=== PATIENT | female | born 1945 | race Caucasian/White ===

== ENCOUNTER → 2017-06-07 | Outpatient (CLI) | payer BC ==
[~2017-06-07] MED LIST: ASPIRIN PO; BENICAR HCT 40-1 TA1 PO; KEFLEX PO; LIPITOR PO; NORCO 5/325 TAB1 TAB PO; TOPROL XL PO
--- NOTE | ~2017-06-07 | MR164 ---
[facility]. [facility] A Service of [facility] RADIOLOGY TEXT RESULTS PATIENT: FERDINAND PURI LOCATION: [facility] : 41 UNIT #: [id number] AGE: [address]: Jose Allison MD SEX: F ORDER DR: [id number] [address] [address] [id number] O MR#: [id number] Acc #: [id number] NAME: FERDINAND PURI : 1945 SEX: F STUDY DATE/TIME: 06/07/2017 15:21 UNIT: [facility] ROOM: STUDY DESCRIPTION: MR Shoulder Wo Contrast Lt Attending Physician: Jose Allison M.D. Referring Physician: Jose Allison M.D. Ordering Physician: Jose Allison M.D. Primary Care Physician: Jose Allison M.D. MRI CENTER REPORT This report is preliminary unless electronic signature is present. EXAM Left shoulder MRI without contrast 06/07/2017 HISTORY 72-year-old female with left shoulder pain and limited range of motion for 1.5 months, since April 20, 2017. No prior left shoulder surgery. No specific injury. COMPARISON Left shoulder x-rays 04/16/2017 TECHNIQUE Routine unenhanced multiplanar, multisequence high field MR imaging of the left shoulder was performed. FINDINGS There is moderate supraspinatus tendinopathy with evidence of partial thickness articular surface and bursal surface fraying. This involves less than 50% of the overall tendon thickness. There is moderate infraspinatus tendinopathy without tear. Teres minor and subscapularis tendons are intact. Long biceps tendon is intact and well positioned in the bicipital groove. No evidence of a labral tear. Glenohumeral articular cartilage is intact. There is a small to moderate glenohumeral effusion. Mild degenerative change of the acromioclavicular joint. No subacromial spur. Ekix-cf-tixuzpas inflammation of the subacromial/subdeltoid bursa. Bone marrow signal is within expected limits. Visualized musculature is unremarkable. IMPRESSION [facility] A Service of [facility] & [facility] RADIOLOGY TEXT RESULTS PATIENT: FERDINAND PURI LOCATION: [facility] : 43 UNIT #: [id number] AGE: [address]: Jose Allison MD SEX: F ORDER DR: 1. Moderate supraspinatus and infraspinatus tendinopathy. There is partial-thickness articular surface and bursal surface fraying of the supraspinatus tendon. However, this involves less than 50% of the overall tendon thickness. No evidence of a full-thickness rotator cuff tear. 2. No significant labral pathology. 3. Small to moderate glenohumeral effusion. 4. Mild acromioclavicular joint arthrosis. 5. Deby-ge-cguxyahh inflammation of the subacromial/subdeltoid bursa. 1. Dictated by... Lorenzo Infante M.D. THIS IS AN ELECTRONICALLY VERIFIED REPORT Lorenzo Infante M.D. at 06/12/2017 10:42 AM Abraham TD: 06/10/2017 16:47 JOB #: [id number] MRI CENTER REPORT Page 1 of 1
== END | disposition home or self-care (01) ==
LOC: SMRI 14:46
DX: M75.80 Other shoulder lesions, unspecified shoulder (principal); M25.412 Effusion, left shoulder; M19.012 Primary osteoarthritis, left shoulder; M75.52 Bursitis of left shoulder
CPT/HCPCS: 73221

== ENCOUNTER → 2017-08-22 | Outpatient (CLI) | payer BC ==
--- NOTE | ~2017-08-22 | US85 ---
[facility] A Service of [facility] & [facility] RADIOLOGY TEXT RESULTS PATIENT: FERDINAND PURI LOCATION: [facility] : 43 UNIT #: [id number] AGE: [address]: Jose Allison MD SEX: F ORDER DR: [id number] [facility] [address] [place], [place] [address] [id number] O MR#: [id number] Acc #: [id number] NAME: FERDINAND PURI : 1945 SEX: F STUDY DATE/TIME: 08/22/2017 12:50 UNIT: [facility] ROOM: STUDY DESCRIPTION: LE Veins Unilat or Ltd Stdy Attending Physician: Jose Allison M.D. Referring Physician: Jose Allison M.D. Ordering Physician: Jose Allison M.D. Primary Care Physician: Jose Allison M.D. MEDICAL IMAGING REPORT This report is preliminary unless electronic signature is present EXAM Right leg vein Doppler, 08/22 INDICATION Right leg swelling for 1 week. TECHNIQUE Venous ultrasound examination of the right lower extremity was performed using grayscale, spectral Doppler and color flow Doppler imaging. FINDINGS The examination is negative. There is no evidence of right lower extremity deep venous thrombus from the groin to the lower calf. Visualized greater saphenous vein is also patent. IMPRESSION Negative examination. No evidence of right lower extremity deep venous thrombosis. Dictated by... Audi Arredondo Jr., M.D. THIS IS AN ELECTRONICALLY VERIFIED REPORT Audi Arredondo Jr., M.D. at 08/22/2017 6:28 PM VERONICA/michelle TD: 08/22/2017 16:56 JOB #: [id number] MEDICAL IMAGING REPORT Page 1 of 1 COPY
== END | disposition home or self-care (01) ==
LOC: CNIV 12:03
DX: M79.89 Other specified soft tissue disorders (principal)
CPT/HCPCS: 93971